=== PATIENT | female | born 1960 | race Caucasian/White ===

== ENCOUNTER 2017-05-21 09:56 | Emergency (ER) | payer OTHER ==
--- NOTE | 2017-05-21 10:51 | EDM.PDOC ---
ED HPI GENERAL MEDICAL PROBLEM - General Chief Complaint: Cardiovascular Problem Stated Complaint: HIGH BLOOD PRESSURE Time Seen by Provider: 05/21/17 10:30 Source of Information: Reports: Patient, Family History Limitations: Reports: No Limitations - History of Present Illness INITIAL COMMENTS - FREE TEXT/NARRATIVE: History of present illness: [57-year-old female comes in with concerns of elevated blood pressure] Review of systems: As per history of present illness and below otherwise all systems reviewed and negative. Past medical history: As per history of present illness and as reviewed below otherwise noncontributory. Surgical history: As per history of present illness and as reviewed below otherwise noncontributory. Social history: No reported history of drug or alcohol abuse. Family history: As per history of present illness and as reviewed below otherwise noncontributory. Physical exam: HEENT: Atraumatic, normocephalic, pupils reactive, negative for conjunctival pallor or scleral icterus, mucous membranes moist, throat clear, neck supple, nontender, trachea midline. Lungs: Clear to auscultation, breath sounds equal bilaterally, chest nontender. Heart: S1S2, regular, negative for clicks, rubs, or JVD. Abdomen: Soft, nondistended, nontender. Negative for masses or hepatosplenomegaly. Negative for costovertebral tenderness. Pelvis: Stable nontender. Genitourinary: Deferred. Rectal: Deferred. Extremities: Atraumatic, negative for cords or calf pain. Neurovascular unremarkable. Neuro: Awake, alert, oriented. Cranial nerves II through XII unremarkable. Cerebellum unremarkable. Motor and sensory unremarkable throughout. Exam nonfocal. Call assessment is benign save the subjective complaint as noted in the history of present illness and is measured upon arrival. As patient sits near repeated blood pressures noted to be decreasing. BP 166/98 while dialyzing with patient at 10:40 AM Patient indicates this is a new problem and that she she has been controlled on her current blood pressure medication until now she denies dietary changes and indicates the only medication change was the addition of fenofibrate. Patient also indicates she's been more conscious of her sodium intake. Diagnostics: [] Therapeutics: [] Impression: [#1 hypertension] Plan: [Discussed with patient need to follow-up primary care provider and have hypertension regimen adjusted] Definitive disposition and diagnosis as appropriate pending reevaluation and review of above. - Related Data Allergies Allergy/AdvReac Type Severity Reaction Status Date / Time Barbiturates AdvReac Unknown Other Verified 05/21/17 10:14 Sulfa (Sulfonamide AdvReac Unknown Other Verified 05/21/17 10:14 Antibiotics) thiopental [From Pentothal] AdvReac Unknown Other Verified 05/21/17 10:14 Home Meds: Home Meds Ergocalciferol (Vitamin D2) [Vitamin D2] 50,000 unit PO WEEKLY 05/21/17 [History ] Fenofibrate Nanocrystallized [Fenofibrate] 145 mg PO DAILY 05/21/17 [History] Lisinopril 20 mg PO DAILY 05/21/17 [History] Metoprolol Succinate [Toprol XL] 50 mg PO DAILY 05/21/17 [History] Past Medical History Cardiovascular History: Reports: Hypertension Other Hematologic History: Pophyria - Infectious Disease History Infectious Disease History: Reports: Chicken Pox, Measles Social & Family History - Family History Family Medical History: Noncontributory - Tobacco Use Smoking Status *Q: Never Smoker - Caffeine Use Caffeine Use: Reports: Coffee, Tea Caffeine Use Comment: seldom - Recreational Drug Use Recreational Drug Use: No ED ROS GENERAL - Review of Systems Review Of Systems: See Below (See history of present illness) ED EXAM, GENERAL - Physical Exam Exam: See Below (See history of present illness) Course - Vital Signs Last Recorded V/S: Last Vital Signs Temp 36.6 C 05/21/17 10:06 Pulse 59 L 05/21/17 10:06 Resp 15 05/21/17 10:06 BP 189/91 H 05/21/17 10:06 Pulse Ox 95 05/21/17 10:06 Departure - Departure Time of Disposition: 10:52 Disposition: Home, Self-Care 01 Condition: Good Clinical Impression: Hypertensive heart disease Referrals: Radha Pollard NP [Primary Care Provider] - Additional Instructions: The following information is given to patients seen in the emergency department who are being discharged to home. This information is to outline your options for follow-up care. We provide all patients seen in our emergency department with a follow-up referral. The need for follow-up, as well as the timing and circumstances, are variable depending upon the specifics of your emergency department visit. If you don't have a primary care physician on staff, we will provide you with a referral. We always advise you to contact your personal physician following an emergency department visit to inform them of the circumstance of the visit and for follow-up with them and/or the need for any referrals to a consulting specialist. The emergency department will also refer you to a specialist when appropriate. This referral assures that you have the opportunity for follow-up care with a specialist. All of these measure are taken in an effort to provide you with optimal care, which includes your follow-up. Under all circumstances we always encourage you to contact your private physician who remains a resource for coordinating your care. When calling for follow-up care, please make the office aware that this follow-up is from your recent emergency room visit. If for any reason you are refused follow-up, please contact the [facility] at and asked to speak to the emergency department charge nurse. Follow-up with your primary care provider in one to 2 days Return to ED as needed as discussed
[2017-05-21 12:23] VITALS: BP 150/93
== END 2017-05-21 11:08 | disposition home or self-care (01) ==
LOC: MW.ED 09:56
DX: I11.9 Hypertensive heart disease without heart failure (principal); Z88.2 Allergy status to sulfonamides; Z88.8 Allergy status to other drugs, medicaments and biological substances; Z79.899 Other long term (current) drug therapy
CPT/HCPCS: 99283